=== PATIENT | female | born 1975 | race Caucasian/White ===

== ENCOUNTER 2017-11-30 13:57 | Emergency (ER) | payer MEDICARE, SELFPAY ==
[2017-11-30 13:59] VITALS: BP 161/93; PULSE 86; RESP 18; TEMP 36.8; O2SAT 97; BMI 31.6
--- NOTE | 2017-11-30 14:09 | CT_ITS ---
STUDY: CT CERVICAL SPINE WITHOUT CONTRAST REASON FOR EXAM: Female, 42 years old. Head injury. RADIATION DOSAGE (If Supplied By Facility): CTDIvol = ( 24.47 ) mGy, DLP = ( 450.57 ) mGycm TECHNIQUE: High resolution transaxial imaging was performed without contrast material. Sagittal and coronal images were reconstructed. Individualized dose optimization techniques were used for this CT. COMPARISON: None FINDINGS: No definite acute fracture/dislocation. The cervical junction is intact. C1-C2 articulation is intact. There is reversal of curvature. There is normal alignment. Facet joints are intact at all levels bilaterally. No jumped facets. There is multilevel spondyloarthropathy. Multilevel degenerative disc disease seen. Multilevel loss of disc height. Multilevel posterior marginal osteophytes and disc bulges. Multilevel neural foraminal narrowing. Multilevel compromise of the spinal canal. Findings most prominent at C5-C6. Visualized paraspinal soft tissues and structures are unremarkable. CT/Spine Cervical without Contras IMPRESSION: There is no definite acute fracture/dislocation. Degenerative changes. Electronically Signed: Manjinder Saini MD at 14:44 EDT , Service support ,
--- NOTE | 2017-11-30 14:09 | CT_ITS ---
STUDY: CT BRAIN WITHOUT CONTRAST REASON FOR EXAM: Female, 42 years old. Dizziness. Injury. RADIATION DOSAGE (If Supplied By Facility): CTDIvol = ( 44.99 ) mGy, DLP = ( 829.85 ) mGycm TECHNIQUE: Transaxial CT imaging of the brain was performed without administration of intravenous contrast material. Individualized dose optimization techniques were used for this CT. COMPARISON: None. FINDINGS: Normal soft tissue structures. Normal calvarium. Normal size ventricles and extra-axial spaces for the patient's age. Normal white matter tracts of the cerebral hemispheres. Normal basal ganglia and thalami. Normal brainstem. Normal cerebellum. There is no intracranial hemorrhage. There are no findings of an acute ischemic infarction. Normal visualized paranasal sinuses. CT/Brain/Head without Contrast IMPRESSION: Normal unenhanced CT scan of the brain. Electronically Signed: Manjinder Saini MD at 14:40 EDT , Service support ,
--- NOTE | 2017-11-30 14:11 | ED.DCSUM_ITS ---
- ER Visit Summary Date of Service: 11/30/17 Chief Complaint: Headache, neck pain, dizziness History of Present Illness: The patient is a 42 F who presents with the above symptoms. 3 days she had a seizure and fell hit a concrete floor. She is transported to [facility] where she was diagnosed with a jaw fracture. She was discharged home without any pain medications. She has been trying ibuprofen but that has not helped her pain. She is felt dizzy and a little bit drowsy and not like herself. She continues to have neck pain. They did not do any imaging of the neck per family member in the room. She has not had another seizure. She takes Topamax for her seizures. No numbness or tingling or loss of function of her arms or legs. Physical Examination: Vital signs reviewed. HEENT shows tenderness and hematoma on the right temporoparietal scalp. Her cervical spine is diffusely tender along with pain in the right midline area. Heart is regular rate and rhythm without murmurs. Lungs are clear to auscultation. Abdomen is soft and nontender. Extremities reveal no edema. Skin exam normal. Neurologic exam normal. Test Results: CAT scan of the head and cervical spine reveal no acute findings Emergency Department Course and Treatment: Patient will be treated with one [place] here. I believe that her symptoms are likely due to a concussion from when she fell after her seizure. I will give her naproxen for home. She will need to follow-up with her PCP Treatment Plan: [] Disposition: Discharge Impression: Concussion, cervical strain This note was generated with [employer] dictation software. It may contain incorrect words, spelling, and punctuation that were not noted in review of the chart prior to signing ED Disposition - Plan for ED Patient: Chief Complaint: Dizziness Referrals: Daniel Bonilla MD [Primary Care Provider] -
[2017-11-30] MEDS: HYDROcodone Bitartrate/Apap 5/325 Tablet PO (14:59)
--- NOTE | 2017-11-30 15:28 | ED.DEP ---
ED Disposition - Plan for ED Patient: Disposition: Home or Assisted Living Chief Complaint: Dizziness Instructions: ED Concussion Prescriptions: Naproxen [Naprosyn] 500 mg PO BID PRN #20 tab Referrals: Daniel Bonilla MD [Primary Care Provider] -
[2017-11-30 15:41] VITALS: BP 124/90; PULSE 87; RESP 14; TEMP 36.6; O2SAT 100
== END 2017-11-30 15:40 | disposition home or self-care (01) ==
PROVIDERS: Emergency Provider Emergency Medicine; Family Provider Family Medicine; PCP Family Medicine
DX: S06.0X9D Concussion with loss of consciousness of unspecified duration, subsequent encounter (principal); S16.1XXD Strain of muscle, fascia and tendon at neck level, subsequent encounter; Z72.0 Tobacco use; Z79.899 Other long term (current) drug therapy; W18.30XD Fall on same level, unspecified, subsequent encounter
CPT/HCPCS: 70450; 72125; 99283

== ENCOUNTER 2018-04-07 20:04 | Emergency (ER) | payer MEDICARE, MEDICAID, SELFPAY ==
[2018-04-07 20:06] VITALS: BP 124/69; PULSE 70; RESP 16; TEMP 36.3; O2SAT 96; BMI 31.3
--- NOTE | 2018-04-07 21:44 | CT_ITS ---
STUDY: CT BRAIN WITHOUT CONTRAST REASON FOR EXAM: Female, 42 years old. Headache nausea. RADIATION DOSAGE (If Supplied By Facility): CTDIvol = ( 44.99 ) mGy, DLP = ( 812.98 ) mGycm TECHNIQUE: Transaxial CT imaging of the brain was performed without administration of intravenous contrast material. Individualized dose optimization techniques were used for this CT. COMPARISON: 11/30/2017. FINDINGS: Normal soft tissue structures. Normal calvarium. Normal size ventricles and extra-axial spaces for the patient's age. Normal white matter tracts of the cerebral hemispheres. Normal basal ganglia and thalami. Normal brainstem. Cerebellar tonsils are low-lying. There is no intracranial hemorrhage. There are no findings of an acute ischemic infarction. Normal visualized paranasal sinuses. CT/Brain/Head without Contrast IMPRESSION: 1. No acute process. 2. Incidental note is made of low lying cerebellar tonsils. Electronically Signed: Leticia Gómez MD at 22:25 EDT Tel , Service support ,
[2018-04-07] MEDS: LORazepam 1 MG Tablet PO (21:53)
[2018-04-07] MEDS: Acetaminophen 500 MG Tablet 1000 MG PO (21:53)
--- NOTE | 2018-04-07 22:34 | ED.VISSUMM ---
- ER Visit Summary Date of Service: 04/07/18 Chief Complaint: Head pain History of Present Illness: The patient is a 42 F with stress-induced seizures with normal prodrome of sharp pain in her head. Patient states she has had these sharp pains in her head for the past for 5 days but has not had a seizure. She states her last seizure was in November and was severe and that she was hitting her head off the floor. She was diagnosed with a concussion following that. Patient does not believe she has had a seizure since that time. She does, however, strengthen episode recently of tensing up but she states she was aware throughout and that is not typical of her seizures. She takes Topamax. This is prescribed by her primary care physician; she does not see a neurologist. Patient does note that she has had increased stress over the past week and a half. She has been afraid to go to work because she is afraid she is going to have a seizure. Physical Examination: Vital signs are unremarkable. Patient sitting upright in a well lit room. He is in no acute distress. Head neck examination was no sign of trauma. Heart is regular rate and rhythm. Lung sounds are clear. Abdomen soft nontender. Neuro exam reveals normal strength and sensation. Test Results: CT of the head shows no acute process. Emergency Department Course and Treatment: Patient is given Tylenol and p.o. Ativan. On repeat evaluation patient is resting comfortably. Test results were discussed with her. I will write her a short prescription for Ativan to use to help with the anxiety and stress. She is referred to neurology for follow-up. Treatment Plan: [] Disposition: Discharge Impression: Cephalgia This note was generated with [employer] dictation software. It may contain incorrect words, spelling, and punctuation that were not noted in review of the chart prior to signing ED Disposition - Plan for ED Patient: Chief Complaint: Seizure Referrals: Daniel Bonilla MD [Primary Care Provider] -
--- NOTE | 2018-04-07 22:39 | ED.DEP ---
ED Disposition - Plan for ED Patient: Disposition: Home or Assisted Living Chief Complaint: Seizure Instructions: ED Cephalgia Unspecified Prescriptions: Lorazepam [Ativan] 0.5 mg PO TID PRN #10 tablet PRN Reason: Anxiety Referrals: Juan David Borrero MD [STAFF PHYSICIAN] - As soon as possible
[2018-04-07] MEDS: LORazepam 0.5 MG Tablet PO (22:54)
[2018-04-07 22:57] VITALS: BP 159/101; PULSE 67; RESP 18; O2SAT 99
== END 2018-04-07 22:58 | disposition home or self-care (01) ==
PROVIDERS: Emergency Provider Emergency Medicine; Family Provider Family Medicine; PCP Family Medicine
DX: R51 Headache (principal); R56.9 Unspecified convulsions; Z79.899 Other long term (current) drug therapy; Z72.0 Tobacco use
CPT/HCPCS: 70450; 99283